=== PATIENT | female | born 1990 | race Caucasian/White ===

== ENCOUNTER 2023-05-25 09:48 | Inpatient (IN) | payer BC ==
[2023-05-22 11:39] LABS: Hematocrit 37.9 % (34.9-44.5); Hemoglobin 13.3 g/dL (12.0-15.5); Platelet Count 190 10x3/uL (150-450)
[2023-05-22 12:32] LABS: Syphilis Antibody Nonreactive (Nonreactive); Syphilis Antibody Index 0.07 S/CO (<1.00 Non-Reactive)
[2023-05-22 12:33] LABS: HBSAg Index 0.16 S/CO (0-0.99); Hep B Surf Ag Non-Reactive S/CO (NonReactive)
[2023-05-25] MEDS ORDERED: Oxytocin 10 UNITS/ML VIAL ONE ×3 (10:16→15:10)
[2023-05-25] MEDS ORDERED: Ondansetron PF 4 MG/2 ML Vial ONE ×2 (10:16→14:21)
[2023-05-25] MEDS ORDERED: Dexamethasone 4 mg/ml Vial ONE ×2 (10:16→14:21)
[2023-05-25] MEDS ORDERED: PHENYLEPHRINE-NS 100 MCG/ML 10 ML SYRINGE ONE ×2 (10:18→14:21)
[2023-05-25 11:20] VITALS: BMI 32.4
[2023-05-25] MEDS ORDERED: Lactated Ringer's 1,000 ML IV SCH (11:22)
[2023-05-25] MEDS ORDERED: Diphenoxylate HCl/Atropine Tablet PO PRN ×2 (11:22)
[2023-05-25] MEDS ORDERED: Ondansetron PF 4 MG/2 ML Vial IVP PRN ×3 (11:22→15:39)
[2023-05-25] MEDS ORDERED: Famotidine/PF 20 mg/2ml Vial SLOW IVP PRN (11:22)
[2023-05-25] MEDS ORDERED: Misoprostol 200 MCG TAB PR PRN (11:22)
[2023-05-25] MEDS ORDERED: Carboprost 250 MCG/ML AMP IM PRN (11:22)
[2023-05-25] MEDS ORDERED: Bicitra 30 ML UDCUP PO PRN (11:22)
[2023-05-25] MEDS ORDERED: CEFAZOLIN 2 GM in Sodium Chloride 0.9% 100 ML IVPB SCH (11:22)
[2023-05-25] MEDS ORDERED: Promethazine HCl 25 MG/ML VIAL IM PRN ×2 (11:22→15:39)
[2023-05-25] MEDS ORDERED: hydrALAZINE 20 MG/ML VIAL SLOW IVP PRN ×2 (11:22→19:10)
[2023-05-25] MEDS ORDERED: Methylergonovine 0.2 MG/ML VIAL IM PRN (11:22)
[2023-05-25] MEDS ORDERED: Oxytocin 30 units/NS 500 ML 500 ML IV SCH (11:22)
[2023-05-25] MEDS ORDERED: Phenylephrine 10 MG/ML VIAL ONE (14:21)
[2023-05-25] MEDS ORDERED: Morphine PF 10 MG/10 ML VIAL ONE (14:21)
[2023-05-25] MEDS ORDERED: fentaNYL 50 mcg/mL 1 mL Vial ONE (14:21)
[2023-05-25] MEDS ORDERED: Erythromycin Base 0.5% Oint 1 GM TUBE ONE (14:56)
[2023-05-25] MEDS ORDERED: Hepatitis B Vaccine 10 MCG/0.5 ML SYR ONE (14:56)
[2023-05-25] MEDS ORDERED: Phytonadione Neonatal 1 MG/0.5 ML AMP ONE (14:56)
[2023-05-25] MEDS ORDERED: Naloxone HCl 0.4 mg/ml Vial IV PRN (15:39)
[2023-05-25] MEDS ORDERED: fentaNYL 50 mcg/mL 1 mL Vial SLOW IVP PRN (15:39)
[2023-05-25] MEDS ORDERED: Moisturizing Cream (Eucerin) 113 GM JAR TOP PRN (15:39)
[2023-05-25] MEDS ORDERED: Promethazine HCl 25 MG SUPP PR PRN (15:39)
[2023-05-25] MEDS ORDERED: diphenhydrAMINE 50 MG/ML VIAL IVP PRN (15:39)
[2023-05-25] MEDS ORDERED: Meperidine HCl/PF 25 MG/ML VIAL SLOW IVP PRN (15:39)
[2023-05-25] MEDS ORDERED: HYDROmorphone 0.5 MG/0.5 ML SYRINGE SLOW IVP PRN (15:39)
[2023-05-25] MEDS ORDERED: Naloxone HCl 0.4 mg/ml Vial IVP PRN ×2 (15:39)
[2023-05-25] MEDS ORDERED: Communication Order-Pharmacy FS SCH (15:45)
[2023-05-25] MEDS ORDERED: Ketorolac Tromethamine 30 MG/ML VIAL IVP SCH (15:45)
[2023-05-25] MEDS ORDERED: Boostrix 0.5 ML (Tdap) VIAL (>/=7 yrs of age) IM ONE (19:10)
[2023-05-25] MEDS ORDERED: Acetaminophen 325 MG TAB PO PRN (19:10)
[2023-05-25] MEDS ORDERED: diphenhydrAMINE 25 MG CAP PO PRN (19:10)
[2023-05-25] MEDS: Docusate 100 MG CAP PO SCH (22:10)
[2023-05-25] MEDS: Ketorolac Tromethamine 30 MG/ML VIAL IVP PRN (22:29)
[2023-05-26] MEDS: Ketorolac Tromethamine 30 MG/ML VIAL IVP PRN ×2 (04:04→12:15)
[2023-05-26 04:32] LABS: Hematocrit 33.8 % (34.9-44.5); Hemoglobin 11.4 g/dL (12.0-15.5); Mean Corpuscular HGB CONC 33.7 g/dL (32.0-36.0); Mean Corpuscular Hemoglobin 31.8 pg (27.0-33.0); Mean Corpuscular Volume 94.2 fl (81.6-98.3); Mean Platelet Volume 11.4 fl (7.4-10.4); Platelet Count 156 10x3/uL (150-450); RBC Distribution Width 11.9 % (11.5-14.5); Red Blood Cell (RBC) Count 3.59 10x6/uL (3.90-5.03); White Blood Cell (WBC) Count 10.1 10x3/uL (3.5-10.5)
[2023-05-26] MEDS: Prenatal Vitamin 1 TAB PO SCH (08:44)
[2023-05-26] MEDS: Docusate 100 MG CAP PO SCH ×2 (08:44→21:28)
[2023-05-26] MEDS: HYDROcodone/Acetaminophen 5/325 mg Tablet PO PRN ×3 (08:44→21:28)
[2023-05-26] MEDS: Simethicone Chewable 80 MG TAB PO PRN ×3 (12:15→21:28)
[2023-05-26] MEDS: Ibuprofen 800 MG TAB PO SCH (21:29)
[2023-05-27] MEDS: Simethicone Chewable 80 MG TAB PO PRN (03:01)
[2023-05-27 03:09] VITALS: TEMP 98.4
[2023-05-27] MEDS: Ibuprofen 800 MG TAB PO SCH (05:34)
[2023-05-27 07:37] VITALS: BP 110/61
[2023-05-27] MEDS ORDERED: HYDROcodone/Acetaminophen 5/325 mg Tablet PO PRN (07:41)
[2023-05-27] MEDS: Prenatal Vitamin 1 TAB PO SCH (08:12)
[2023-05-27] MEDS: Docusate 100 MG CAP PO SCH (08:13)
== END 2023-05-27 12:05 | disposition home or self-care (01) | DRG 788 ==
LOC: CSHNSY 09:48 → CSHLD 10:17 → CSHPP 18:10
PROVIDERS: ADMIT Obstetrics & Gynecology; ATTEND Obstetrics & Gynecology
PROC: 10D00Z1 Extraction of Products of Conception, Low, Open Approach (ICD-10-PCS; principal; 2023-05-25)
DX: O34.211 Maternal care for low transverse scar from previous cesarean delivery (principal); Z3A.39 39 weeks gestation of pregnancy; Z37.0 Single live birth
CPT/HCPCS: 51702; 85014; 85018; 85027; 85049; 86780; 86850; 86900; 86901; 87340; J1100; J1885; J2274; J2370; J2405; J2590; J3010; J3490; J7120; S0028